=== PATIENT | female | born 1955 | race Caucasian/White ===

== ENCOUNTER 2019-05-28 09:10 | Emergency (ER) | payer OTHER ==
[~2019-05-28] VITALS: Ht 157.5 cm; Wt 81.7 kg
[~2019-05-28 09:10] MED LIST: ALBU90OI6 INH; AZIT250 PO; CEPH500 PO; Crutch1 EACH MISC; FLUSAL2505 INH; HYDACE5 PO; IBUP600 PO; LISI20 PO; Norco 5-325 Ta1 EACH PO; PRED20 PO; Prinivil10 MG PO; TIOT18 INH; TRAM50 PO
[2019-05-28] MEDS ORDERED: CYCL10 PO (11:23)
[2019-05-28] MEDS ORDERED: IBU800 MG PO (11:23)
== END 2019-05-28 11:36 | disposition home or self-care (01) ==
LOC: ER 09:10
DX: S39.012A Strain of muscle, fascia and tendon of lower back, initial encounter (principal); I10 Essential (primary) hypertension; F17.200 Nicotine dependence, unspecified, uncomplicated; Z85.41 Personal history of malignant neoplasm of cervix uteri; Z88.0 Allergy status to penicillin; Z88.5 Allergy status to narcotic agent; Z79.899 Other long term (current) drug therapy; X50.1XXA Overexertion from prolonged static or awkward postures, initial encounter; Y93.F2 Activity, caregiving, lifting
CPT/HCPCS: 96372; 99283-25; J1885

== ENCOUNTER 2022-05-08 07:15 | Day surgery (SDC) | payer OTHER ==
[~2022-05-08] VITALS: Ht 157.5 cm; Wt 69.2 kg
[~2022-05-08 07:15] MED LIST changes: +CYCL10 PO; +IBU800 MG PO
[2022-05-08] MEDS ORDERED: VALS80 PO (07:53)
[2022-05-08] MEDS ORDERED: TRELEGY ELLIPT1 EACH IH (07:54)
[2022-05-08] MEDS ORDERED: ALBU90OI INH (07:54)
[2022-05-08] MEDS ORDERED: GABA400 PO (07:54)
[2022-05-08] MEDS ORDERED: BUSP5 PO (07:55)
== END 2022-05-08 09:08 | disposition home or self-care (01) ==
LOC: ORSCSDS 07:15
PROVIDERS: Orthopaedic Surgery
PROC: 01N50ZZ Release Median Nerve, Open Approach (ICD-10-PCS; principal; 2022-05-08 08:30)
DX: G56.03 Carpal tunnel syndrome, bilateral upper limbs (principal); F41.8 Other specified anxiety disorders; J44.9 Chronic obstructive pulmonary disease, unspecified; Z87.891 Personal history of nicotine dependence; Z79.899 Other long term (current) drug therapy
CPT/HCPCS: J2250; J2704; J3010; J7120